=== PATIENT | female | born 1985 | race African-American/Black ===

== ENCOUNTER 2022-06-27 04:01 | Inpatient (IN) | payer OTHER ==
[~2022-06-27] VITALS: Ht 175.3 cm; Wt 99.5 kg
[2022-06-27 05:28] LABS: BASOPHILS % 0.5 % (0.0-2.0); EOSINOPHILS % 1.4 % (0.0-5.0); HEMATOCRIT. 38.9 % (36.0-48.0); HEMOGLOBIN. 12.9 g/dL (12.0-16.0); LYMPHOCYTES % 25.6 % (20.0-50.0); MEAN CORPUSCULAR HEMOGLOBIN 27.8 pg (28.0-32.0); MEAN CORPUSCULAR VOLUME 83.8 fL (81.0-99.0); MEAN PLATELET VOLUME 7.5 fl (7.4-10.4); MONOCYTES % 6.2 % (2.0-8.0); NEUTROPHILS % 66.3 % (40.0-76.0); PLATELET 386 x1000/uL (130-400); RED BLOOD CELL COUNT 4.64 mill/uL (4.2-5.4); RED CELL DISTRIBUTION WIDTH 13.5 % (11.6-14.6)
[2022-06-27 05:35] LABS: CHLORIDE 108 mEq/L (98-107)
[2022-06-27] MEDS ORDERED: SODIUM CHLORIDE 0.9% 1,000 ML IV ONE ×2 (05:45→09:00)
[2022-06-27] MEDS ORDERED: ONDANSETRON HCL 4MG/2ML INJ IV ONE (05:45)
[2022-06-27] MEDS ORDERED: FAMOTIDINE 20MG/2ML VIAL IV ONE (05:45)
[2022-06-27] MEDS ORDERED: CEFTRIAXONE 1GM PREMIX 50 ML IV ONE (08:15)
[2022-06-27] MEDS ORDERED: METRONIDAZOLE 500 MG PREMIX 100 ML IV ONE (08:15)
[2022-06-27 08:58] LABS: UCG SCREEN NEGATIVE
[2022-06-27] MEDS ORDERED: MORPHINE SULFATE 4 MG/ML CPJ (NOT FOR IM USE) IV ONE (09:00)
[2022-06-27] MEDS ORDERED: METOCLOPRAMIDE HCL 10MG/2ML VIAL IV ONE (09:15)
[2022-06-27] MEDS ORDERED: ONDANSETRON HCL 4MG/2ML INJ IV PRN (13:15)
[2022-06-27] MEDS ORDERED: CEFTRIAXONE 1GM PREMIX 50 ML IV SCH (13:15)
[2022-06-27] MEDS ORDERED: IPRATROPIUM/ALBUTEROL 0.5-3(2.5)MG/3ML NEB HHN PRN (13:15)
[2022-06-27] MEDS ORDERED: NALOXONE HCL 0.4MG/ML VIAL IV PRN (13:15)
[2022-06-27] MEDS: SODIUM CHLORIDE 0.9% 1,000 ML IV SCH ×2 (13:16→23:15)
[2022-06-27 15:56] VITALS: BP 144/96
[2022-06-27 16:00] VITALS: BP 144/96
[2022-06-27] MEDS ORDERED: PHEN100C4 PO (17:01)
[2022-06-27] MEDS: MORPHINE SULFATE 2 MG/ML CPJ (NOT FOR IM USE) IV PRN (17:17)
[2022-06-27 20:00] VITALS: BP 151/84
[2022-06-27] MEDS: PHENYTOIN SODIUM EXTENDED 100MG CAPSULE PO SCH (21:15)
[2022-06-28 04:00] VITALS: BP 129/78
[2022-06-28 06:53] LABS: BASOPHILS % 0.7 % (0.0-2.0); EOSINOPHILS % 3.1 % (0.0-5.0); HEMATOCRIT. 37.7 % (36.0-48.0); HEMOGLOBIN. 12.9 g/dL (12.0-16.0); LYMPHOCYTES % 34.1 % (20.0-50.0); MEAN CORPUSCULAR HEMOGLOBIN 28.3 pg (28.0-32.0); MEAN CORPUSCULAR VOLUME 82.6 fL (81.0-99.0); MEAN PLATELET VOLUME 7.9 fl (7.4-10.4); MONOCYTES % 9.1 % (2.0-8.0); PLATELET 362 x1000/uL (130-400); RED BLOOD CELL COUNT 4.57 mill/uL (4.2-5.4)
[2022-06-28 08:00] VITALS: BP 154/80
[2022-06-28 08:36] LABS: CHLORIDE 108 mEq/L (98-107)
[2022-06-28] MEDS: MORPHINE SULFATE 2 MG/ML CPJ (NOT FOR IM USE) IV PRN (10:03)
[2022-06-28] MEDS: CEFTRIAXONE 1,000 MG in DEXTROSE 5% WATER 50 ML IV SCH (10:03)
[2022-06-28] MEDS: SODIUM CHLORIDE 0.9% 1,000 ML IV SCH (10:09)
[2022-06-28 12:00] VITALS: BP 168/83
[2022-06-28] MEDS: CLONIDINE 0.1MG TABLET PO SCH ×2 (13:28→21:21)
[2022-06-28 16:00] VITALS: BP 121/74
[2022-06-28 20:00] VITALS: BP 107/62
[2022-06-28] MEDS: PHENYTOIN SODIUM EXTENDED 100MG CAPSULE PO SCH (21:18)
[2022-06-29] MEDS: SODIUM CHLORIDE 0.9% 1,000 ML IV SCH (05:15)
[2022-06-29] MEDS: CLONIDINE 0.1MG TABLET PO SCH ×2 (06:59→18:18)
[2022-06-29] MEDS: ACETAMINOPHEN 325MG TABLET PO PRN ×2 (07:19→18:18)
[2022-06-29 08:00] VITALS: BP 123/64
[2022-06-29] MEDS: CEFTRIAXONE 1,000 MG in DEXTROSE 5% WATER 50 ML IV SCH (08:33)
[2022-06-29 12:00] VITALS: BP 117/70
[2022-06-29 16:00] VITALS: BP 143/83
[2022-06-29 16:38] VITALS: BP 117/70
== END 2022-06-29 19:10 | disposition home or self-care (01) | DRG 446 ==
LOC: ER 04:01 → 6EST 12:47 → EDBEDREQ 13:05 → EDBEDREQSVC 14:05
PROVIDERS: ADMIT Internal Medicine; ATTEND Internal Medicine
DX: K80.00 Calculus of gallbladder with acute cholecystitis without obstruction (principal); E66.01 Morbid (severe) obesity due to excess calories; Z68.32 Body mass index [BMI] 32.0-32.9, adult; R74.01 Elevation of levels of liver transaminase levels
CPT/HCPCS: 36415; 76705; 80053; 81025; 84484; 85025; 93005; 93970; 99285; C1893; J0696; J2270; J2405; J2765; J3490; J7030; J7060